=== PATIENT | male | born 1960 | race Caucasian/White ===

== ENCOUNTER 2021-08-07 15:12 | Inpatient (IN) | payer BC ==
[~2021-08-07] VITALS: Ht 187 cm; Wt 125.5 kg
[2021-08-07 15:37] LABS: HEMATOCRIT 52 % (40-54); HEMOGLOBIN 17.5 g/dL (13.3-17.7); MEAN CORPUSCULAR HEMOGLOBIN 33 pg (25-34); MEAN CORPUSCULAR HGB CONC 34 g/dL (32-36); MEAN CORPUSCULAR VOLUME 98 fL (80-99)
[2021-08-07 15:38] LABS: BASOPHILS % (AUTO) 1 % (0-10); EOSINOPHILS % (AUTO) 1 % (0-10); LYMPHOCYTES # (AUTO) 2.7 X 10^3 (1.0-4.0); LYMPHOCYTES % (AUTO) 27 % (12-44); MEAN PLATELET VOLUME 11.3 fL (9.0-12.2); MONOCYTES # (AUTO) 0.9 X 10^3 (0.0-1.0); MONOCYTES % (AUTO) 9 % (0-12); NEUTROPHILS # (AUTO) 6.2 X 10^3 (1.8-7.8); NEUTROPHILS % (AUTO) 63 % (42-75); PLATELET COUNT 177 10^3/uL (130-400)
[2021-08-07 15:39] LABS: BASOPHILS # (AUTO) 0.1 10^3/uL (0.0-0.1); EOSINOPHILS # (AUTO) 0.1 10^3/uL (0.0-0.3)
[2021-08-07] MEDS ORDERED: ASPIRIN 81 MG CHEW (CHILDREN'S ASA) PO STA (15:40)
[2021-08-07] MEDS ORDERED: HEParin 1000 UNIT/ML (10ML VIAL) FOR BOLUS IV STA (15:43)
[2021-08-07] MEDS ORDERED: meTOprolol 5 MG/5 ML (LOPRESSOR) VIAL IV STA (15:43)
--- NOTE | 2021-08-07 15:47 | Diagnostic Imaging Report ---
EXAM: CHEST 1 VIEW AP/PA ONLY INDICATION: Chest pain. COMPARISON: None. FINDINGS: Cardiomegaly. Normal central pulmonary vascularity. No focal pulmonary opacity. No pleural effusion or pneumothorax. No acute osseous findings. IMPRESSION: Cardiomegaly. Chest otherwise unremarkable. Dictated by: Dictated on workstation # [id number]
[2021-08-07 15:49] LABS: PROTHROMBIN TIME PATIENT 13.1 SEC (12.2-14.7)
--- NOTE | 2021-08-07 15:50 | ED Chest Pain ---
General Chief Complaint: Chest Pain Stated Complaint: CP,SOB Nursing Triage Note: Patient has presented to ER with cc of shortness of breath for the last 2 months, he becomes more short of breath with exertion and it has gotten worse over the last 3 weeks. Patient reports sweeping snow this morning and had a 10 minute episode of chest pain that has gone away. He reports that he has remained short of breath today and came to the doctors office for evaluation. He was was brought to ER for evaluation. Source: patient History of Present Illness Date Seen by Provider: Aug 07, 2021 Time Seen by Provider: 15:25 Initial Comments 61-year-old male presenting with complaints of chest pain that has been coming on with exertion and getting worse over the last several weeks. He has been getting short of breath with that as well. He was sweeping snow this morning and had 10-minute episode of chest pain that has gone away but he still short of breath. He gets winded with minimal exertion and has to sit down rest to catch his breath. He went to the doctor's office to be evaluated today and they sent him to the emergency department because of his complaint of chest pain from 10 AM. He states he is not having any chest pain right now is just short of breath and winded. He denies any nausea or vomiting. He states he has no past medical history. He denies any medications that he takes on a regular basis and denies any allergies to medications. Timing/Duration: intermittent (Intermittent chest pain over the last several weeks. He had a 10-minute episode of pain earlier today. He continues to be short of breath especially with exertion) Severity/Quality: moderate Location: substernal Radiation: no radiation Activities at Onset: activity (Sweeping snow) Prior CP/Workup: no prior cardiac workup ASA po PRESSURE CONTROL SUPERVISOR: No NTG SL PRESSURE CONTROL SUPERVISOR: No Associated Symptoms: No abdominal pain, No back pain, No diaphoresis, No dizziness, No edema; fatigue; No fever/chills, No headache, No heartburn, No nausea/vomiting, No rash; shortness of breath; No swelling/lump in chest, No syncope, No weakness Allergies and Home Medications Allergies Coded Allergies: No Known Drug Allergies (Unverified , 08/07/21) Patient Home Medication List Home Medication List Reviewed: Yes Review of Systems Review of Systems Constitutional: No chills, No fever EENTM: No Symptoms Reported Respiratory: See HPI Cardiovascular: See HPI Gastrointestinal: No Symptoms Reported Genitourinary: No Symptoms Reported Musculoskeletal: no symptoms reported Skin: no symptoms reported Psychiatric/Neurological: No Symptoms Reported Endocrine: No Symptoms Reported Past Cbtsdzj-Xejgro-Sdmpff Hx Patient Social History Tobacco Use?: No Use of E-Cig and/or Vaping dev: No Substance use?: No Alcohol Use?: No Pt feels they are or have been: No Physical Exam Vital Signs Vital Signs - First Documented 08/07/21 08/07/21 15:20 15:29 Temp 36.6 Pulse 63 Resp 18 B/P (MAP) 127/99 (108) Pulse Ox 98 O2 Delivery Nasal Cannula O2 Flow Rate 2.00 Capillary Refill : Less Than 3 Seconds Height, Weight, BMI Height: '" Weight: lbs. oz. kg; 35.00 BMI Method: General Appearance: Mild Distress, Obese HEENT: Pharynx Normal Neck: Full Range of Motion, Normal Inspection, Non Tender, Supple; No Carotid Bruit Respiratory: Chest Non Tender, Decreased Breath Sounds; No Stridor Cardiovascular: Normal Peripheral Pulses, Irregularly Irregular, Tachycardia Gastrointestinal: Normal Bowel Sounds, No Pulsatile Mass, Non Tender, Soft Rectal: Deferred Extremity: Normal Capillary Refill, Normal Inspection, No Pedal Edema Neurologic/Psychiatric: Alert, Oriented x3, pack puller II-XII Norm as Tested Skin: Normal Color, Warm/Dry Progress/Results/Core Measures Results/Orders Lab Results Laboratory Tests Test 08/07/21 15:24 Range/Units White Blood Count 10.0 4.3-11.0 10^3/uL Red Blood Count 5.28 4.30-5.52 10^6/uL Hemoglobin 17.5 13.3-17.7 g/dL Hematocrit 52 40-54 % Mean Corpuscular Volume 98 80-99 fL Mean Corpuscular Hemoglobin 33 25-34 pg Mean Corpuscular Hemoglobin Concent 34 32-36 g/dL Red Cell Distribution Width 13.2 10.0-14.5 % Platelet Count 177 130-400 10^3/uL Mean Platelet Volume 11.3 9.0-12.2 fL Immature Granulocyte % (Auto) 0 % Neutrophils (%) (Auto) 63 42-75 % Lymphocytes (%) (Auto) 27 12-44 % Monocytes (%) (Auto) 9 0-12 % Eosinophils (%) (Auto) 1 0-10 % Basophils (%) (Auto) 1 0-10 % Neutrophils # (Auto) 6.2 1.8-7.8 X 10^3 Lymphocytes # (Auto) 2.7 1.0-4.0 X 10^3 Monocytes # (Auto) 0.9 0.0-1.0 X 10^3 Eosinophils # (Auto) 0.1 0.0-0.3 10^3/uL Basophils # (Auto) 0.1 0.0-0.1 10^3/uL Immature Granulocyte # (Auto) 0.0 0.0-0.1 10^3/uL Neutrophils % (Manual) 64 % Lymphocytes % (Manual) 18 % Monocytes % (Manual) 8 % Eosinophils % (Manual) 2 % Basophils % (Manual) 0 % Band Neutrophils 3 % Atypical Lymphocytes 5 % Prothrombin Time 13.1 12.2-14.7 SEC INR Comment 1.0 0.8-1.4 Activated Partial Thromboplast Time 26 24-35 SEC Sodium Level 142 135-145 MMOL/L Potassium Level 4.4 3.6-5.0 MMOL/L Chloride Level 107 98-107 MMOL/L Carbon Dioxide Level 26 21-32 MMOL/L Anion Gap 9 5-14 MMOL/L Blood Urea Nitrogen 14 7-18 MG/DL Creatinine 0.89 0.60-1.30 MG/DL Estimat Glomerular Filtration Rate 87 BUN/Creatinine Ratio 16 Glucose Level 76 70-105 MG/DL Calcium Level 9.7 8.5-10.1 MG/DL Corrected Calcium 9.5 8.5-10.1 MG/DL Magnesium Level 2.0 1.6-2.4 MG/DL Total Bilirubin 0.5 0.1-1.0 MG/DL Aspartate Amino Transf (AST/SGOT) 18 5-34 U/L Alanine Aminotransferase (ALT/SGPT) 33 0-55 U/L Alkaline Phosphatase 98 40-136 U/L Troponin I < 0.30 <0.30 NG/ML Pro-B-Type Natriuretic Peptide 1364.0 H <75.0 PG/ML Total Protein 7.7 6.4-8.2 GM/DL Albumin 4.3 3.2-4.5 GM/DL My Orders Orders - PEDRO PRINGLE MD Cbc With Automated Diff (08/07/21 15:29) Magnesium (08/07/21 15:29) Chest 1 View Ap/Pa Only (08/07/21 15:29) Ekg Tracing (08/07/21 15:29) Comprehensive Metabolic Panel (08/07/21 15:29) Protime With Inr (08/07/21 15:29) Partial Thromboplastin Time (08/07/21 15:29) O2 (08/07/21 15:29) Monitor-Rhythm Ecg Trace Only (08/07/21 15:29) Ed Iv/Invasive Line Start (08/07/21 15:29) Troponin I Fs (08/07/21 15:29) Probnp Fs (08/07/21 15:29) Aspirin Chewable Tablet (Baby Aspirin Ch (08/07/21 15:40) Heparin (Bolus Per Protocol) (Heparin (B (08/07/21 15:43) Metoprolol Tartrate Injection (Lopressor (08/07/21 15:43) Manual Differential (08/07/21 15:24) Ekg Tracing (08/07/21 16:08) Vital Signs/I&O 08/07/21 08/07/21 15:20 15:29 Temp 36.6 Pulse 63 Resp 18 B/P (MAP) 127/99 (108) Pulse Ox 98 O2 Delivery Nasal Cannula Room Air O2 Flow Rate 2.00 Blood Pressure Mean: 108 Progress Progress Note #1: Progress Note Electrocardiogram showed ST elevation in the inferior leads. He also had multiple PVCs present. Prescription was called to activate the Floor Refinisher and spoke with Dr. Parada with cardiology. Give patient aspirin 324 mg p.o. Progress Note #2: Progress Note After discussion with Dr. Parada he recommended 5000 units single bolus of heparin. In addition to this since he was tachycardic look like new onset atrial fibrillation a dose of 5 mg IV metoprolol was given. Patient was on supplemental oxygen by nasal cannula as well. He had findings for cardiomegaly without failure or pleural effusion on his chest x-ray. Progress Note #3: Progress Note Initial troponin came back less than 0.3. His initial blood work did not show any acute significant abnormality. His proBNP was slightly elevated. 1605 Dr. Parada called back and requested a repeat EKG and that the patient get 5 mg of metoprolol. I advised him that the patient already had metoprolol. He was hoping that the repeat EKG would have fewer PVCs so he could see better what was going on with the patient. Initial ECG Impression Date: Aug 07, 2021 Initial ECG Impression Time: 15:15 Initial ECG Rate: 120 Initial ECG Rhythm: A Fib/Flutter Initial ECG Comparisson: No Previous ECG Available Comment Atrial flutter with a rate of 120 bpm. Paired PVCs. Nonspecific intraventricular conduction delay. ST elevation in the anterolateral and inferior leads. QT interval 361 ms with a QTc interval of 511 ms. No prior tracing available for comparison. EKG : EKG Time: 16:08 Rate: 121 Rhythm: A Fib/Flutter ECG Comparisson: Changed Comment Atrial fibrillation with a heart rate of 112 bpm. Inferior infarct with ST elevation and leads II, 3, aVF, V1 through V3. Prolonged QT interval of 381 ms and QTc interval 541 ms. Compared to prior tracing from 1514 he has fewer PVCs. Diagnostic Imaging Diagonstic Imaging: Xray Plain Films/CT/US/NM/MRI: chest Comments [facility]. [place], [place] NAME: HUGO CERVANTES [facility] REC#: [id number] PT STATUS: REG ER : 1960 PHYSICIAN: PEDRO PRINGLE MD ADMIT DATE: 08/07/21/ER FS Draft Date of Exam:08/07/21 CHEST 1 VIEW AP/PA ONLY EXAM: CHEST 1 VIEW AP/PA ONLY INDICATION: Chest pain. COMPARISON: None. FINDINGS: Cardiomegaly. Normal central pulmonary vascularity. No focal pulmonary opacity. No pleural effusion or pneumothorax. No acute osseous findings. IMPRESSION: Cardiomegaly. Chest otherwise unremarkable. Dictated on workstation # [id number] Dict: 08/07/21 1542 Trans: 08/07/21 1547 CV [id number] Interpreted by: MARK NÚÑEZ MD Electronically signed by: Reviewed: Reviewed by Me Departure Communication (Admissions) Time/Spoke to Admitting Phy: 15:[address] Parada for cardiology. Advised of the ST elevation and new onset atrial fibrillation with chest pain. Patient was given aspirin and he recommended heparin 5000 unit bolus. Patient will go to the Floor Refinisher. Impression Primary Impression: STEMI (ST elevation myocardial infarction) Qualified Codes: I21.3 - ST elevation (STEMI) myocardial infarction of unspecified site Additional Impressions: Chest pain Qualified Codes: I20.0 - Unstable angina New onset atrial fibrillation Disposition: 30 STILL A PATIENT Condition: Critical Admissions Decision to Admit Reason: Admit from ER (General) Decision to Admit/Date: Aug 07, 2021 Time/Decision to Admit Time: 15:41 Departure-Patient Inst. Referrals: NO,LOCAL PHYSICIAN (PCP/Family) Primary Care Physician PEDRO PRINGLE MD Aug 07, 2021 15:50
[2021-08-07] MEDS ORDERED: fentaNYL INJ 100 MCG/2 ML AMP ONE (15:54)
[2021-08-07] MEDS ORDERED: NS IV 1000 ML 1,000 ML ONE (15:55)
[2021-08-07] MEDS ORDERED: NITRO DRIP 25000 MCG/D5W 250 ML IV ONE (15:55)
[2021-08-07] MEDS ORDERED: HEParin (CATH LAB) 2,000 ML IV ONE (15:55)
[2021-08-07] MEDS ORDERED: HEParin 1000 UNIT/ML (10ML VIAL) FOR BOLUS ONE (15:55)
[2021-08-07] MEDS ORDERED: MIDAZOLAM 5 MG/5 ML (VERSED) VIAL ONE (15:55)
[2021-08-07 15:56] LABS: ATYPICAL LYMPHOCYTES 5 %; BAND NEUTROPHILS 3 %; BASOPHILS % (MANUAL) 0 %; EOSINOPHILS % (MANUAL) 2 %; LYMPHOCYTES % (MANUAL) 18 %; MONOCYTES % (MANUAL) 8 %; NEUTROPHILS % (MANUAL) 64 %
[2021-08-07] MEDS ORDERED: LIDOCAINE 1% INJ 20 ML VIAL ONE (15:58)
[2021-08-07 16:00] LABS: ALBUMIN 4.3 GM/DL (3.2-4.5); BILIRUBIN,TOTAL 0.5 MG/DL (0.1-1.0); CALCIUM 9.7 MG/DL (8.5-10.1); CREATININE SERUM 0.89 MG/DL (0.60-1.30); POTASSIUM 4.4 MMOL/L (3.6-5.0); TOTAL PROTEIN 7.7 GM/DL (6.4-8.2)
[2021-08-07] MEDS ORDERED: PATIENT MAY USE OWN MEDS, ALL PO SCH (17:45)
--- NOTE | 2021-08-07 17:48 | Cardiology History & Physical ---
HPI-Cardiology Cardiology Consultation Date of Consultation 08/07/21 Date of Admission Time Seen by Provider: 17:07 Indication: Acute myocardial infarction HPI 61 years old gentleman with no significant past medical history has been having increasing shortness of breath on exertion and palpitation, started to have chest pain today described as dull in nature in the retrosternal area, came into the emergency room and noted to be tachycardic and having ST elevation in the inferior leads. Currently feeling somewhat better. Transferred for emergency cardiac catheterization. PMH-Cardiology Other PMHx No known past medical history Social History Patient Social History Marrital Status: Employed/Student: employed Smoking: Current every day smoker Alcohol Use?: No Family Hx Other Family history of heart disease ROS-Cardiology Review of Systems General: No Chills, No Night Sweats, No Fatigue, No Malaise, No Appetite HEENT: No Head Aches, No Visual Changes, No Eye Pain, No Ear Pain, No Dysphasia, No Sinus Congestion, No Post Nasal Drip, No Sore Throat Pulmonary: Dyspnea; No Cough, No Pleuritic Chest Pain Cardiovascular: Chest Pain, Palpitations; No: Orthopnea, Paroxysmal Noc. Dyspnea, Edema, Lt Headedness Gastrointestinal: No: Nausea, Vomiting, Abdominal Pain, Diarrhea, Constipation, Melena, Hematochezia Genitourinary: No Dysuria, No Frequency, No Incontinence, No Hematuria, No Retention Musculoskeletal: No: neck pain, shoulder pain, arm pain, back pain, hand pain, leg pain, foot pain Neurological: No: Weakness, Numbness, Incoordination, Change in speech, Confusion, Seizures Home Medications & Allergies Allergies: Coded Allergies: No Known Drug Allergies (Unverified , 08/07/21) Home Medication List Reviewed: Yes Exam-Cardiology Vital Signs Vital Signs Date Time Temp Pulse Resp B/P (MAP) Pulse Ox O2 Delivery O2 Flow Rate FiO2 08/07/21 15:29 36.6 63 18 127/99 (108) Room Air 08/07/21 15:20 98 2.00 Exam General Appearance: Alert, Oriented X3, Cooperative, No Acute Distress HEENT: Atraumatic, PERRLA Respiratory: Clear to Auscultation, Normal Air Movement Cardiovascular: Normal S1, Normal S2, No Murmurs, Other (Tachycardia) Abdominal: Normal Bowel Sounds, Soft, No Tenderness, No Hepatosplenomegaly, No Masses Extremities: No Clubbing, No Cyanosis, No Edema, Normal Pulses, No Tenderness/Swelling Skin: No Rashes, No Breakdown, No Significant Lesion Neuro: Normal Gait, Normal Speech, Strength at 5/5 X4 Ext, Normal Tone, Sensation Intact Psych/Mental Status: Mental Status NL, Mood NL Results Labs Labs Laboratory Tests 08/07/21 15:24: White Blood Count 10.0, Red Blood Count 5.28, Hemoglobin 17.5, Hematocrit 52, Mean Corpuscular Volume 98, Mean Corpuscular Hemoglobin 33, Mean Corpuscular Hemoglobin Concent 34, Red Cell Distribution Width 13.2, Platelet Count 177, Mean Platelet Volume 11.3, Immature Granulocyte % (Auto) 0, Neutrophils (%) (Auto) 63, Lymphocytes (%) (Auto) 27, Monocytes (%) (Auto) 9, Eosinophils (%) (Auto) 1, Basophils (%) (Auto) 1, Neutrophils # (Auto) 6.2, Lymphocytes # (Auto) 2.7, Monocytes # (Auto) 0.9, Eosinophils # (Auto) 0.1, Basophils # (Auto) 0.1, Immature Granulocyte # (Auto) 0.0, Neutrophils % (Manual) 64, Lymphocytes % (Manual) 18, Monocytes % (Manual) 8, Eosinophils % (Manual) 2, Basophils % (Manual) 0, Band Neutrophils 3, Atypical Lymphocytes 5, Prothrombin Time 13.1, I NR Comment 1.0, Activated Partial Thromboplast Time 26, Sodium Level 142, Potassium Level 4.4, Chloride Level 107, Carbon Dioxide Level 26, Anion Gap 9, Blood Urea Nitrogen 14, Creatinine 0.89, Estimat Glomerular Filtration Rate 87, BUN/Creatinine Ratio 16, Glucose Level 76, Calcium Level 9.7, Corrected Calcium 9.5, Magnesium Level 2.0, Total Bilirubin 0.5, Aspartate Amino Transf (AST/SGOT) 18, Alanine Aminotransferase (ALT/SGPT) 33, Alkaline Phosphatase 98, Troponin I < 0.30, Pro-B-Type Natriuretic Peptide 1364.0H, Total Protein 7.7, Albumin 4.3 A/P-Cardiology Admission Diagnosis Acute ST elevation myocardial infarction Coronary artery disease Tachycardia Dyspnea Admission Status: Inpatient Order (span 2 midnights) Reason for Inpatient Admission: Acute ST elevation myocardial infarction Assessment/Plan Acute ST elevation myocardial infarction, brought for emergency cardiac catheterization, carried out with stenting to the circumflex artery with excellent results Coronary artery disease, cardiac catheterization was carried out on August 07, 2021 showing ectasia in the LAD, subtotal occlusion in the mid circumflex artery successful balloon angioplasty and stenting using zuri point stent 2.75 x 23 mm expanded to 2.9 proximally and 2.85 distally with excellent results, moderate stenosis in the mid right coronary artery with mild ectasia Mildly elevated left ventricular end-diastolic pressure. Planning to evaluate 2D echo Tachycardia, narrow complex, could have underlying atrial flutter. I will continue monitoring Frequent PVCs noted on EKG, started on low-dose beta-blockers Hyperlipidemia, started on Lipitor 80 mg daily Obesity, BMI 35 Heavy tobaccoism, educated on smoking cessation Clinical Quality Measures AMI/AHF: ASA po Prior to arrival: JOHNATHON Tijerina MD Aug 07, 2021 17:48
--- NOTE | 2021-08-07 17:49 | Conscious Sedation/ASA ---
Conscious Sedation Pre-Proced Time 17:07 ASA Score 3 For ASA 3 and 4: Consider anesthesia and medical clearance. Also, for patients with a history of failed moderate sedation consider anesthesia. Airway Lungs Heart ASA score ASA 1: a normal healthy patient ASA 2: a patient with a mild systemic disease (mid diabetes, controlled hypertension, obesity x ASA 3: a patient with a severe systemic disease that limits activity (angina, COPD, prior Myocardial infarction) ASA 4: a patient with an incapacitating disease that is a constant threat to life (CHF, renal failure) ASA 5: a moribund patient not expected to survive 24 hrs. (ruptured aneurysm) ASA 6: a declared brain- patient whose organs are being harvested. For emergent operations, add the letter E after the classification Mallampati Classification Grade 3 Sedation Plan Analgesia, Amnesia, Plan communicated to team members, Discussed options with patient/fam, Discussed risks with patient/fam The patient is an appropriate candidate to undergo the planned procedure, sedation, and anesthesia. The patient immediately re-assessed prior to indication. JOHNATHON BEAVER MD Aug 07, 2021 17:49
--- NOTE | 2021-08-07 17:53 | Cardiac Cath Report ---
Cardiac Cath Report Physician (s)/Chassis Engineer (s) Physician JOHNATHON BEAVER MD Pre-Procedure Diagnosis Pre-Procedure Diagnosis: Coronary artery disease Post-Procedure Note Procedure Start Date: Aug 07, 2021 Name of Procedure: Left heart catheterization Emergency stenting to the circumflex artery Findings/Procedure Note PROCEDURE NOTE: 61 years old gentleman with no significant past medical history admitted with acute chest pain and shortness of breath and palpitation, noted to have ST elevation in the inferior leads, transferred for emergency cardiac catheterization. After explaining the procedure to the patient, all pros and cons were explained, all questions were answered. The patient signed the cons ent and then he was placed on the cardiac catheterization laboratory. Groin was prepped SL fashion local anesthesia was used. Sheath placed in the artery. Karen right and left catheter were used to access the coronary system. Patient was noted to have subtotal occlusion of the circumflex artery, EBU 3.5 guide was advanced to the left ventricular system, that catheter prolapsed into the left ventricle, pressure was measured, pullback LV to aorta was done. Patient received total of 8000 units of heparin, BMW wire was advanced and parked in the distal circumflex artery, predilatation with 2.5 x 20 mm balloon, door to balloon time was 19 minutes then deployment of zuri point stent 2.75 x 23 mm expanded proximally to 2.9 mm and distally 2.85 mm with excellent results. At the end of the procedure the sheath was removed. Closure device was deployed FINDINGS: Hemodynamics Please see separate sheet for hemodynamic ANATOMY: Left Main is free of obstructive disease Left Anterior Descending has diffuse ectasia with mild disease nonobstructive disease Left Circumflex has subtotal occlusion at the midportion successful emergency angioplasty and stenting using zuri point stent 2.75 x 23 mm expanded to 2.9 mm proximally and 2.85 mm distally Right Coronary Artery has diffuse ectasia, moderate stenosis at the mid to distal portion nonobstructive disease LV Gram was not done, pressure was measured CONCLUSION: 1. Acute ST elevation myocardial infarction in the inferior lead with subtotal occlusion of the mid circumflex artery successful emergency angioplasty and stenting using zuri point stent 2.75 x 23 mm with excellent results 2. Diffuse ectasia in the LAD and right coronary artery with moderate stenosis in the mid to distal right coronary artery nonobstructive disease DISCUSSION AND RECOMMENDATION: Patient was started on aspirin and Brilinta, Lipitor and beta-blockers. We will monitor tolerance and response Anesthesia Type: Conscious Sedation Estimated blood loss (mL): 25 ml Contrast Amount: 125 ml Total Radiation Dose: 1523 mGy Post-Procedure Diagnosis Post-operative diagnosis: Acute ST elevation myocardial infarction Coronary artery disease Hypertension Hyperlipdemia JOHNATHON BEAVER MD Aug 07, 2021 17:53
[2021-08-07] MEDS ORDERED: TICAGRELOR 90 MG TABLET (BRILINTA) PO ONE (17:59)
[2021-08-07] MEDS: NS IV 1000 ML 1,000 ML IV SCH ×2 (18:10→19:00)
--- NOTE | 2021-08-07 18:22 | Tele-ICU Progress Note ---
Progress Note Video assessment done , Hemodynamically stable Available charting reviewed NO TELE-ICU CONSULT REQUESTED CONTINUE TO MONITOR PER USUAL TELE-ICU PROTOCOL No need for Tele-ICU interventions Plans as delineated by bedside physicians / consultants Focused Exam Height, Weight, BMI Height: '" Weight: lbs. oz. kg; 35.00 BMI Method: LENIN DURBIN MD Aug 07, 2021 18:22
[2021-08-07] MEDS: TICAGRELOR 90 MG TABLET (BRILINTA) PO SCH (21:41)
[2021-08-08 04:29] LABS: HEMATOCRIT 48 % (40-54); HEMOGLOBIN 16.3 g/dL (13.3-17.7); MEAN CORPUSCULAR HEMOGLOBIN 33 pg (25-34); MEAN CORPUSCULAR HGB CONC 34 g/dL (32-36); MEAN CORPUSCULAR VOLUME 97 fL (80-99); MEAN PLATELET VOLUME 11.2 fL (9.0-12.2); PLATELET COUNT 161 10^3/uL (130-400); WHITE BLOOD COUNT 9.5 10^3/uL (4.3-11.0)
[2021-08-08 04:45] LABS: POTASSIUM 4.2 MMOL/L (3.6-5.0)
[2021-08-08 04:46] LABS: CALCIUM 8.8 MG/DL (8.5-10.1)
[2021-08-08 04:51] LABS: CREATININE SERUM 0.72 MG/DL (0.60-1.30)
[2021-08-08] MEDS: PANTOPRAZOLE 40 MG (PROTONIX) TAB PO SCH (08:29)
[2021-08-08] MEDS: ASPIRIN E.C. 81 MG (ECOTRIN) TAB PO SCH (08:29)
[2021-08-08] MEDS: TICAGRELOR 90 MG TABLET (BRILINTA) PO SCH ×2 (08:29→20:03)
[2021-08-08] MEDS ORDERED: MIDAZOLAM 5 MG/5 ML (VERSED) VIAL ONE (09:34)
[2021-08-08] MEDS ORDERED: NS IV 500 ML 500 ML ONE (09:34)
[2021-08-08] MEDS ORDERED: proPOfol 200 MG/20 ML (DIPRIVAN) VIAL IV ONE (09:34)
[2021-08-08] MEDS ORDERED: LIDOCAINE 2% VISCOUS 15 ML UDC ONE (09:34)
--- NOTE | 2021-08-08 09:49 | Conscious Sedation/ASA ---
Conscious Sedation Pre-Proced Time 09:49 ASA Score 3 For ASA 3 and 4: Consider anesthesia and medical clearance. Also, for patients with a history of failed moderate sedation consider anesthesia. Airway Lungs Heart ASA score ASA 1: a normal healthy patient ASA 2: a patient with a mild systemic disease (mid diabetes, controlled hypertension, obesity x ASA 3: a patient with a severe systemic disease that limits activity (angina, COPD, prior Myocardial infarction) ASA 4: a patient with an incapacitating disease that is a constant threat to life (CHF, renal failure) ASA 5: a moribund patient not expected to survive 24 hrs. (ruptured aneurysm) ASA 6: a declared brain- patient whose organs are being harvested. For emergent operations, add the letter E after the classification Mallampati Classification Grade 3 Sedation Plan Analgesia, Amnesia, Plan communicated to team members, Discussed options with patient/fam, Discussed risks with patient/fam The patient is an appropriate candidate to undergo the planned procedure, sedation, and anesthesia. The patient immediately re-assessed prior to indication. JOHNATHON BEAVER MD Aug 08, 2021 09:49
--- NOTE | 2021-08-08 09:52 | Cardiology Progress Note ---
Subjective Date Seen by Provider: Aug 08, 2021 Time Seen by Provider: 09:50 Subjective/Events-last exam Patient was seen at bedside laying down comfortably, denied any chest pain, still tachycardic. Review of Systems General: No Chills, No Night Sweats, No Fatigue, No Malaise, No Appetite, No Other HEENT: No Head Aches, No Visual Changes, No Eye Pain, No Ear Pain, No Dysphasia, No Sinus Congestion, No Post Nasal Drip, No Sore Throat, No Other Pulmonary: Dyspnea; No Cough, No Pleuritic Chest Pain, No Other Cardiovascular: No: Chest Pain, Palpitations, Orthopnea, Paroxysmal Noc. Dyspnea, Edema, Lt Headedness, Other Objective-Cardiology Exam Last Set of Vital Signs Vital Signs 08/07/21 08/08/21 08/08/21 15:20 08:27 09:00 Temp 36.8 Pulse 94 Resp 10 B/P (MAP) 132/98 Pulse Ox 95 O2 Delivery Room Air O2 Flow Rate 2.00 I&O Intake and Output 08/08/21 00:00 Intake Total 350 ml Output Total 700 ml Balance -350 ml Intake Oral 350 ml Output Urine Total 700 ml Daily Weight Change No General: Alert, Oriented X3, Cooperative, No Acute Distress HEENT: Atraumatic, PERRLA Lungs: Clear to Auscultation, Normal Air Movement Heart: Normal S1, Normal S2, No Murmurs, Other (Tachycardia) Abdomen: Normal Bowel Sounds, Soft, No Tenderness, No Hepatosplenomegaly, No Masses Extremities: No Clubbing, No Cyanosis, No Edema, Normal Pulses, No Tenderness/Swelling Skin: No Rashes, No Breakdown, No Significant Lesion Neuro: Normal Gait, Normal Speech, Strength at 5/5 X4 Ext, Normal Tone, Sensa tion Intact Psych/Mental Status: Mental Status NL, Mood NL Results Lab Laboratory Tests 08/07/21 15:24 08/08/21 04:05 A/P-Cardiology Admission Diagnosis Acute ST elevation myocardial infarction Coronary artery disease Tachycardia Dyspnea Assessment/Plan Acute ST elevation myocardial infarction, brought for emergency cardiac catheterization, carried out with stenting to the circumflex artery with excellent results Coronary artery disease, cardiac catheterization was carried out on August 07, 2021 showing ectasia in the LAD, subtotal occlusion in the mid circumflex artery successful balloon angioplasty and stenting using zuri point stent 2.75 x 23 mm expanded to 2.9 proximally and 2.85 distally with excellent results, moderate stenosis in the mid right coronary artery with mild ectasia Congestive heart failure, acute left ventricular systolic dysfunction, ischemic and nonischemic cardiomyopathy probably secondary to coronary artery disease and atrial fibrillation with rapid ventricular response, started on beta-blockers, adding ARB, arranging for LifeVest. Atrial fibrillation with rapid ventricular response, started on Lovenox, I will add Eliquis 5 mg twice daily, planning for ANDRE with electrical cardioversion [id number] score of 3, yearly risk of stroke without oral anticoagulation 3%, starting on Eliquis. Frequent PVCs noted on EKG, started on low-dose beta-blockers Hyperlipidemia, started on Lipitor 80 mg daily Obesity, BMI 35 Heavy tobaccoism, educated on smoking cessation JOHNATHON BEAVER MD Aug 08, 2021 09:51
[2021-08-08] MEDS: ENOXAPARIN 300 MG/3 ML (LOVENOX) MULTI-DOSE VIAL SQ SCH ×2 (10:00→10:22)
[2021-08-08] MEDS ORDERED: AMIODARONE FOR BOLUS 150 MG in NS (IVPB) 100 ML IV NR (11:00)
[2021-08-08 11:35] VITALS: BP 112/81
--- NOTE | 2021-08-08 11:45 | Cardioversion ---
Cardioversion PROCEDURE PHYSICIAN: Johnathon Parada DATE OF PROCEDURE: 08/08/21 DIRECT EXTERNAL ELECTRICAL CARDIOVERSION: Indications: Atrial Fibrillation with rapid ventricular rate Preoperative diagnoses: Atrial Fibrillation with rapid ventricular rate Postoperative diagnosis: Sinus rhythm, Successful Electrical Cardioversion Anesthesia: By Anesthesia services Complications: None Specimen: None Contrast: 0 Flouroscopy: none Procedure Details: The patient was brought the laborer tin can after informed consent was taken, all the risks and complications were explained including the risk of stroke. Electrical cardioversion was carried out with anesthesia support with propofol. 200 joules of synchronized shock was delivered through external patches which promptly restored sinus rhythm. The patient tolerated the procedure well. Conclusions: Successful electrical cardioversion with no complication Final Diagnosis: Paroxysmal atrial fibrillation Palpitation Congestive heart failure Coronary artery disease JOHNATHON PARADA MD Aug 08, 2021 11:45
--- NOTE | 2021-08-08 11:59 | Anesthesia-General Post-Op ---
MAC Patient Condition Mental Status/LOC: Same as Preop Cardiovascular: Satisfactory Nausea/Vomiting: Absent Respiratory: Satisfactory Pain: Controlled Complications: Absent Post Op Complications Complications None Follow Up Care/Instructions Patient Instructions None needed. Anesthesiology Discharge Order Discharge Order Patient is doing well, no complaints, stable vital signs, no apparent adverse anesthesia problems. No complications reported per nursing. LISA CABELLO CRNA Aug 08, 2021 11:59
[2021-08-08] MEDS: APIXABAN 5 MG (ELIQUIS) TABLET PO SCH (20:03)
[2021-08-09 04:27] LABS: BASOPHILS % (AUTO) 0 % (0-10); EOSINOPHILS # (AUTO) 0.1 10^3/uL (0.0-0.3); EOSINOPHILS % (AUTO) 1 % (0-10); HEMATOCRIT 48 % (40-54); HEMOGLOBIN 16.1 g/dL (13.3-17.7); LYMPHOCYTES # (AUTO) 2.1 10^3/uL (1.0-4.0); LYMPHOCYTES % (AUTO) 23 % (12-44); MEAN CORPUSCULAR HEMOGLOBIN 33 pg (25-34); MEAN CORPUSCULAR HGB CONC 33 g/dL (32-36); MEAN CORPUSCULAR VOLUME 98 fL (80-99); MEAN PLATELET VOLUME 11.6 fL (9.0-12.2); MONOCYTES # (AUTO) 0.8 10^3/uL (0.0-1.0); MONOCYTES % (AUTO) 9 % (0-12); NEUTROPHILS # (AUTO) 6.1 10^3/uL (1.8-7.8); NEUTROPHILS % (AUTO) 67 % (42-75); PLATELET COUNT 148 10^3/uL (130-400); WHITE BLOOD COUNT 9.1 10^3/uL (4.3-11.0)
[2021-08-09 04:46] LABS: ALBUMIN 3.7 GM/DL (3.2-4.5); POTASSIUM 4.2 MMOL/L (3.6-5.0)
[2021-08-09 04:47] LABS: CALCIUM 9.1 MG/DL (8.5-10.1)
[2021-08-09 04:48] LABS: TOTAL PROTEIN 6.9 GM/DL (6.4-8.2)
[2021-08-09 04:50] LABS: BILIRUBIN,TOTAL 1.2 MG/DL (0.1-1.0)
[2021-08-09 04:52] LABS: CREATININE SERUM 0.81 MG/DL (0.60-1.30); PHOSPHORUS 3.4 MG/DL (2.3-4.7)
[2021-08-09 04:54] LABS: MAGNESIUM 1.8 MG/DL (1.6-2.4)
--- NOTE | 2021-08-09 08:12 | Tele-ICU Progress Note ---
Progress Note video rounds completed 61 y/o admitted with STEMI Had PCI developed a fib and cardioverted PE: now in sinus rythym PLANS: as per cardiology dual antiplatlet RX Focused Exam Height, Weight, BMI Height: '" Weight: lbs. oz. kg; 35.74 BMI Method: Laboratory Tests 08/09/21 04:08 HUGO ELDER MD Aug 09, 2021 08:12
[2021-08-09] MEDS: TICAGRELOR 90 MG TABLET (BRILINTA) PO SCH (08:22)
[2021-08-09] MEDS: APIXABAN 5 MG (ELIQUIS) TABLET PO SCH (08:22)
[2021-08-09] MEDS: ASPIRIN E.C. 81 MG (ECOTRIN) TAB PO SCH (08:22)
[2021-08-09] MEDS: PANTOPRAZOLE 40 MG (PROTONIX) TAB PO SCH (08:22)
[2021-08-09] MEDS: NS IV 1000 ML 1,000 ML IV SCH (08:23)
[2021-08-09] MEDS ORDERED: LOSARTAN 25 MG (COZAAR) TAB PO SCH (09:00)
[2021-08-09] MEDS ORDERED: FUROSEMIDE 40 MG/4 ML INJ (LASIX) IVP ONE (10:30)
[2021-08-09] MEDS ORDERED: CLOPIDOGREL 75 MG (PLAVIX) TABLET PO SCH (10:30)
[2021-08-09] MEDS ORDERED: ASPI-1238 PO (11:40)
[2021-08-09] MEDS ORDERED: CLOP75TA28 PO (11:40)
[2021-08-09] MEDS ORDERED: MTP25TSR PO (11:40)
[2021-08-09] MEDS ORDERED: ATOR80TA76 PO (11:40)
[2021-08-09] MEDS ORDERED: APIX5TAB PO (11:40)
[2021-08-09] MEDS ORDERED: LOSA25TA41 PO (11:40)
[2021-08-09] MEDS ORDERED: PANT40TA52 PO (11:40)
[2021-08-09] MEDS ORDERED: HYDR25TA4 PO (11:40)
--- NOTE | 2021-08-09 11:40 | Discharge Inst-Post CATH ---
Discharge Inst-CATH/EP Problems Reviewed?: Yes Post Cardiac Cath/EP D/C Inst Follow Up/Plan Appointment with Dr. Parada's office in 1 to 2 weeks <b>CARDIAC CATH/EP PROCEDURE DISCHARGE INSTRUCTIONS</b> ACTIVITY * Go Home directly and rest. * Limit activity of the leg (or wrist if it was used) for 7 days including aer obics, swimming, jogging, bicycling, etc. * Restrict stair-climbing for 7 days if possible, if not, climb up with your non-cath leg, then bring together on the same step. * Avoid lifting, pushing, pulling or excessive movement of the affected extremi ty for 7 days. * Customary sexual activity may be resumed after 2 days-use caution not to use a position that strains or causes pain to the affected extremity. * No driving for 24 hours. * NO SMOKING. * Avoid straining for bowel movements for 7 days. * Gentle walking on level ground is allowed. * Returning to work will depend on the type of procedure and the results. Your doctor will discuss this with you. CALL YOUR DOCTOR FOR ANY OF THE FOLLOWING: *If bleeding from the puncture site occurs- Apply gentle pressure to site with clean cloth and call your doctor or EMS. * If a knot or lump forms under the skin, increases in size, or causes pain. * If bruising appears to be worsening or moving further down your leg instead of disappearing. * Temperature above 101 F. CARE OF YOUR GROIN INCISION; * Bruising or purple discoloration of the skin near the puncture site is common. * You may shower only, no bathtub bathing for 5 days. Be careful to avoid slipping as your leg may feel stiff. * If a closure device was used on your femoral artery, please see the attached guide regarding care of the device and your leg. * Leave dressing on FOR 24 hours. CARE OF YOUR WRIST INCISION; * Bruising or purple discoloration of the skin near the puncture site is common. * You may shower. * DO NOT submerge wrist. * Leave dressing on FOR 24 hours. JOHNATHON PARADA MD Aug 09, 2021 11:40
--- NOTE | 2021-08-09 11:44 | Cardiology Discharge Summary ---
Discharge Summary Hospital Course Problems Reviewed?: Yes Hospital Course Date of Admission: Aug 07, 2021 at 17:42 Admission Diagnosis : Family Physician/Provider: No,Local Physician Date of Discharge: 08/09/21 Discharge Diagnosis: [Acute ST elevation myocardial infarction in the inferior wall Coronary artery disease Congestive heart failure, acute left ventricular systolic dysfunction, combination of ischemic and nonischemic cardiomyopathy, ejection fraction 25% Paroxysmal atrial fibrillation Hyperlipidemia Tobaccoism] Hospital Course: [ Acute ST elevation myocardial infarction, brought for emergency cardiac cath eterization, carried out with stenting to the circumflex artery with excellent results Coronary artery disease, cardiac catheterization was carried out on August 07, 2021 showing ectasia in the LAD, subtotal occlusion in the mid circumflex artery successful balloon angioplasty and stenting using zuri point stent 2.75 x 23 mm expanded to 2.9 proximally and 2.85 distally with excellent results, moderate stenosis in the mid right coronary artery with mild ectasia Congestive heart failure, acute left ventricular systolic dysfunction, ischemic and nonischemic cardiomyopathy probably secondary to coronary artery disease and atrial fibrillation with rapid ventricular response, started on beta-blockers and ARB, arranging for LifeVest. Shortness of breath, orthopnea, appeared to have mild pulmonary edema, I will give him 80 mg of Lasix IV x1 then I am adding hydrochlorothiazide and evaluate tolerance and response Atrial fibrillation with rapid ventricular response, started on Lovenox, I will add Eliquis 5 mg twice daily, planning for ANDRE with electrical cardioversion [id number] score of 3, yearly risk of stroke without oral anticoagulation 3%, starting on Eliquis. Frequent PVCs noted on EKG, started on low-dose beta-blockers Hyperlipidemia, started on Lipitor 80 mg daily Obesity, BMI 35 Heavy tobaccoism, educated on smoking cessation] Labs and Pending Lab Test: Laboratory Tests 08/09/21 04:08: White Blood Count 9.1, Red Blood Count 4.91, Hemoglobin 16.1, Hematocrit 48, Mean Corpuscular Volume 98, Mean Corpuscular Hemoglobin 33, Mean Corpuscular Hemoglobin Concent 33, Red Cell Distribution Width 13.2, Platelet Count 148, Mean Platelet Volume 11.6, Immature Granulocyte % (Auto) 0, Neutrophils (%) (Auto) 67, Lymphocytes (%) (Auto) 23, Monocytes (%) (Auto) 9, Eosinophils (%) (Auto) 1, Basophils (%) (Auto) 0, Neutrophils # (Auto) 6.1, Lymphocytes # (Auto) 2.1, Monocytes # (Auto) 0.8, Eosinophils # (Auto) 0.1, Basophils # (Auto) 0.0, Immature Granulocyte # (Auto) 0.0, Sodium Level 138, Potassium Level 4.2, Chloride Level 105, Carbon Dioxide Level 22, Anion Gap 11, Blood Urea Nitrogen 13, Creatinine 0.81, Estimat Glomerular Filtration Rate 97, BUN/Creatinine Ratio 16, Glucose Level 102, Calcium Level 9.1, Corrected Calcium 9.3, Phosphorus Level 3.4, Magnesium Level 1.8, Total Bilirubin 1.2H, Aspartate Amino Transf (AST/SGOT) 13, Alanine Aminotransferase (ALT/SGPT) 24, Alkaline Phosphatase 79, Total Protein 6.9, Albumin 3.7 Home Meds Active Pantoprazole Sodium 40 Mg Tablet.dr 40 Mg PO DAILY Hydrochlorothiazide 25 Mg Tablet 25 Mg PO DAILY Aspirin EC (Aspirin) 81 Mg Tablet.dr 81 Mg PO DAILY Losartan Potassium 25 Mg Tablet 25 Mg PO DAILY Metoprolol Succinate 25 Mg Tab.er.24h 25 Mg PO DAILY Atorvastatin Calcium 80 Mg Tablet 80 Mg PO HS Clopidogrel (Clopidogrel Bisulfate) 75 Mg Tablet 75 Mg PO DAILY Eliquis (Apixaban) 5 Mg Tablet 5 Mg PO BID Assessment/Pt DC Instructions Appointment with Dr Parada in one week Life vest Educated on diet, meds Activity as Tolerated: Yes Discharge Physical Examination Allergies: Coded Allergies: No Known Drug Allergies (Unverified , 08/07/21) General Appearance: No Apparent Distress, WD/WN HEENT: PERRL/EOMI, TMs Normal, Normal ENT Inspection, Pharynx Normal Respiratory: Chest Non Tender, Normal Breath Sounds, No Accessory Muscle Use, No Respiratory Distress, Crackles Cardiovascular: Regular Rate, Rhythm, No Edema, No Gallop, No JVD, No Murmur, Normal Peripheral Pulses Gastrointestinal: Normal Bowel Sounds, No Organomegaly, No Pulsatile Mass, Non Tender, Soft Extremity: Normal Capillary Refill, Normal Inspection, Normal Range of Motion, Non Tender, No Calf Tenderness, No Pedal Edema Skin: Normal Color, Warm/Dry Neurologic/Psychiatric: Alert, Oriented x3, No Motor/Sensory Deficits Clinical Quality Measures Admission Status Admission Status: Inpatient Order (span 2 midnights) Reason for Inpatient Admission: Acute myocardial infarction AMI/AHF: Ejection Fraction: <40 (YFN/ARB Indicated) D/C Medications Addressed: Angiotension receptor feliciano, Beta feliciano ASA po Prior to arrival: JOHNATHON Tijerina MD Aug 09, 2021 11:44
--- NOTE | 2021-08-11 22:46 | Physician Query Clarification ---
PQ-CHF Specificity Admission Date: Aug 07, 2021 at 17:42 Discharge Date: Aug 09, 2021 at 15:00 JOHNATHON Geiger MD The medical record reflects the following clinical scenario: History/Risk Factors: 61 y/o male patientpresented with chaest pain found to have STEMI in [facility] under went cardiac catheterization and emergent angioplasty with drug eluting stent done, cogestive heart failure was documented in medical record. Clinical Findings: BNP-1364.0 H, EF-26 %, Treatment: IV Lasix. Question: Can you further specify the acuity &/or type of CHF per the clinical indicators above? Please document a response in the Progress Notes or Discharge Summary. 1. Acuity: Acute, Chronic or Acute on Chronic 2. Type: Systolic, Diastolic or Systolic & Diastolic 3. Unspecified: CHF cannot be further specified regarding type or acuity 4. Other, with explanation of clinical findings 5. Clinically undetermined, no explanation for clinical findings PHYSICIAN RESPONSE Acuity: Acute Type: Systolic Please remember a lack of response to the above will prompt a phone page by CDI/Coding staff. In responding to this query, please exercise your independent professional ju dgment. The purpose of this communication is to more accurately reflect the complexity of your patients condition. The fact that a question is asked does not imply that any particular answer is desired or expected. Thank you for your timely response to this clarification. Requestors name: [ ] Phone # [ ] THIS PHYSICIAN QUERY FORM IS A PERMANENT PART OF THE MEDICAL RECORD PACHECO SEWELL Aug 11, 2021 22:46 JOHNATHON BEAVER MD Aug 12, 2021 20:44
== END 2021-08-09 15:00 | disposition home or self-care (01) | DRG 246 ==
LOC: ER FS 15:20 → CATH 17:02 → ICU 17:42
PROVIDERS: ADMIT Internal Medicine Cardiovascular Disease; ATTEND Internal Medicine Cardiovascular Disease
PROC: 027034Z Dilation of Coronary Artery, One Artery with Drug-eluting Intraluminal Device, Percutaneous Approach (ICD-10-PCS; principal; 2021-08-07)
PROC: 4A023N7 Measurement of Cardiac Sampling and Pressure, Left Heart, Percutaneous Approach (ICD-10-PCS; 2021-08-07)
PROC: B2111ZZ Fluoroscopy of Multiple Coronary Arteries using Low Osmolar Contrast (ICD-10-PCS; 2021-08-07)
PROC: B2151ZZ Fluoroscopy of Left Heart using Low Osmolar Contrast (ICD-10-PCS; 2021-08-07)
PROC: 5A2204Z Restoration of Cardiac Rhythm, Single (ICD-10-PCS; 2021-08-08)
DX: I21.19 ST elevation (STEMI) myocardial infarction involving other coronary artery of inferior wall (principal); I50.21 Acute systolic (congestive) heart failure; I42.8 Other cardiomyopathies; I25.10 Atherosclerotic heart disease of native coronary artery without angina pectoris; R00.0 Tachycardia, unspecified; R06.00 Dyspnea, unspecified; I48.0 Paroxysmal atrial fibrillation; E78.5 Hyperlipidemia, unspecified; E66.9 Obesity, unspecified; Z68.35 Body mass index [BMI] 35.0-35.9, adult; F17.210 Nicotine dependence, cigarettes, uncomplicated; I49.3 Ventricular premature depolarization; I25.5 Ischemic cardiomyopathy
CPT/HCPCS: 36415; 71045; 80048; 80053; 80061; 83735; 83880; 84100; 84484; 85007; 85025; 85027; 85610; 85730; 93005; 93041; 93306; 93312; 93320; 93325; 93458

== ENCOUNTER → 2021-09-12 | Outpatient (CLI) | payer BC ==
[~2021-09-12] MED LIST: APIX5TAB PO; ASPI-1238 PO; ATOR80TA76 PO; CLOP75TA28 PO; HYDR25TA4 PO; LOSA25TA41 PO; MTP25TSR PO; PANT40TA52 PO
[2021-09-12 11:56] LABS: BASOPHILS # (AUTO) 0.1 10^3/uL (0.0-0.1); BASOPHILS % (AUTO) 1 % (0-10); EOSINOPHILS # (AUTO) 0.2 10^3/uL (0.0-0.3); EOSINOPHILS % (AUTO) 2 % (0-10); HEMATOCRIT 49 % (40-54); HEMOGLOBIN 16.8 g/dL (13.3-17.7); LYMPHOCYTES # (AUTO) 2.4 10^3/uL (1.0-4.0); LYMPHOCYTES % (AUTO) 27 % (12-44); MEAN CORPUSCULAR HEMOGLOBIN 33 pg (25-34); MEAN CORPUSCULAR HGB CONC 35 g/dL (32-36); MEAN CORPUSCULAR VOLUME 95 fL (80-99); MEAN PLATELET VOLUME 11.3 fL (9.0-12.2); MONOCYTES % (AUTO) 11 % (0-12); NEUTROPHILS # (AUTO) 5.2 10^3/uL (1.8-7.8); NEUTROPHILS % (AUTO) 59 % (42-75); PLATELET COUNT 173 10^3/uL (130-400); WHITE BLOOD COUNT 8.8 10^3/uL (4.3-11.0)
[2021-09-12 13:19] LABS: ALBUMIN 4.1 GM/DL (3.2-4.5); BILIRUBIN,TOTAL 0.5 MG/DL (0.1-1.0); CALCIUM 9.4 MG/DL (8.5-10.1); CREATININE SERUM 0.75 MG/DL (0.60-1.30); POTASSIUM 3.9 MMOL/L (3.6-5.0); TOTAL PROTEIN 7.4 GM/DL (6.4-8.2)
== END ==
LOC: LAB FS 11:38
PROVIDERS: ATTEND Nurse Practitioner Family
DX: R31.9 Hematuria, unspecified (principal); Z79.01 Long term (current) use of anticoagulants
CPT/HCPCS: 36415; 80053; 85025

== ENCOUNTER → 2021-11-21 | Outpatient (CLI) | payer BC | LOC: CARD 10:20 | PROVIDERS: ATTEND Physician Assistant | DX: I11.9 Hypertensive heart disease without heart failure (principal); I25.10 Atherosclerotic heart disease of native coronary artery without angina pectoris | CPT/HCPCS: 93306 ==

== ENCOUNTER → 2022-08-07 | Outpatient (CLI) | payer BC ==
[~2022-08-07] MED LIST changes: +CATHETER FLUSH 10 ML SYR IVP PRN
[2022-08-07 08:10] VITALS: BP 120/70
--- NOTE | 2022-08-10 11:02 | Cardiology Stress Test Report ---
Stress Test Report Date of Procedure/Referring: Date of Procedure: Aug 10, 2022 PCP Soledad Cota Aprn Admitting Physician Admitting Physician: Attending Physician: Skyla Perez Baseline Heart Rate: 44 Baseline Blood Pressure: Blood Pressure Systolic: 120 Blood Pressure Diastolic: 70 Vital Signs Date Time Temp Pulse Resp B/P (MAP) Pulse Ox O2 Delivery O2 Flow Rate FiO2 08/07/22 08:10 44 120/70 (87) 99 Baseline Vital Signs Vital Signs Date Time Temp Pulse Resp B/P (MAP) Pulse Ox O2 Delivery O2 Flow Rate FiO2 08/07/22 08:10 44 120/70 (87) 99 Baseline EKG: Baseline EKG: NSR Summary: After explaining the procedure and details to the patient, he signed the consent and was brought to the stress nuclear laboratory. Patient exercised on standard Chris protocol, EKG, heart rate and blood pressure were monitored continuously, resting and stress doses of radio tracer were injected, imaging was acquired and reviewed in the short axis, horizontal long axis and vertical long axis views Patient was able to exercise for a total of 6 minutes on Chris protocol, METs 7 Maximum heart rate 107 Maximum blood pressure 197/63 Stress EKG, Minimal nondiagnostic changes Recovery EKG, Return to baseline TID: 1.15 SSS: 1 SDS: 1 EF: 56 Conclusion: 1. Poor exercise tolerance, patient was unable to exercise beyond 6 minutes on standard Chris protocol achieving only 67% of maximal expected heart rate. Patient drank coffee the morning of the test, could not have Lexiscan done. 2. Baseline sinus bradycardia with chronotropic incompetence and severe hypertensive response to exercise with peak blood pressure 197/63 3. Nondiagnostic EKG changes with exercise return to baseline during recovery 4. Diaphragmatic attenuation affecting the quality of the images with mild ischemia involving the inferoapical segment. 5. Normal left ventricular size, ejection fraction 56%. This is a nondiagnostic test, patient was significantly symptomatic had nondiagnostic EKG changes and mild ischemia of the inferior wall. Extensive cardiac history, recommend cardiac catheterization Copy Copies To 1: [facility]/JOHNATHON SORIANO MD Aug 10, 2022 11:02
== END ==
LOC: CARD 07:00
PROVIDERS: ATTEND Physician Assistant
DX: I10 Essential (primary) hypertension (principal); I25.9 Chronic ischemic heart disease, unspecified; R00.1 Bradycardia, unspecified; J98.6 Disorders of diaphragm
CPT/HCPCS: 78452; 93017; A9502; C8929; 93306

== ENCOUNTER 2022-08-26 13:27 | Day surgery (SDC) | payer BC ==
[~2022-08-26] VITALS: Ht 188.8 cm; Wt 123.0 kg
[2022-08-26] VITALS (11 sets, daily range): BP systolic 112–146; BP diastolic 46–87
[~2022-08-26 13:27] MED LIST changes: -CATHETER FLUSH 10 ML SYR IVP PRN
[2022-08-26] MEDS ORDERED: LIDOCAINE 1% INJ 20 ML VIAL ONE (13:42)
[2022-08-26] MEDS ORDERED: HEParin (CATH LAB) 2,000 ML IV ONE (13:42)
[2022-08-26] MEDS ORDERED: NS IV 1000 ML 1,000 ML ONE (13:42)
[2022-08-26] MEDS ORDERED: NS IV 1000 ML 1,000 ML IV ONE (13:45)
--- NOTE | 2022-08-26 14:08 | Diagnostic Imaging Report ---
INDICATION: Coronary artery disease Frontal chest obtained at 0147 p.m. and compared to 08/07/2021. The heart is mildly enlarged. There is central vascular congestion without edema. There is no consolidation or pneumothorax or pleural fluid. IMPRESSION: Cardiomegaly and mild central vascular congestion. No adelina edema or consolidation or pleural fluid. Dictated by: Dictated on workstation # [id number]
[2022-08-26 14:10] LABS: HEMATOCRIT 51 % (40-54); MEAN CORPUSCULAR HEMOGLOBIN 32 pg (25-34); MEAN CORPUSCULAR HGB CONC 33 g/dL (32-36); MEAN CORPUSCULAR VOLUME 97 fL (80-99); MEAN PLATELET VOLUME 10.8 fL (9.0-12.2); PLATELET COUNT 196 10^3/uL (130-400); WHITE BLOOD COUNT 11.1 10^3/uL (4.3-11.0)
[2022-08-26] MEDS ORDERED: PANT40TA52 PO (14:10)
[2022-08-26] MEDS ORDERED: METO50TA7 PO (14:10)
[2022-08-26] MEDS ORDERED: IBUP-2473 PO (14:10)
[2022-08-26] MEDS ORDERED: LOSA50TA63 PO (14:10)
[2022-08-26] MEDS ORDERED: CLOP75TA28 PO (14:10)
[2022-08-26] MEDS ORDERED: ATOR80TA76 PO (14:10)
[2022-08-26] MEDS ORDERED: APIX5TAB PO (14:10)
[2022-08-26] MEDS ORDERED: HYDR25TA4 PO (14:10)
[2022-08-26 14:11] LABS: BILIRUBIN,URINE NEGATIVE (NEGATIVE); CLARITY,URINE CLEAR; COLOR,URINE YELLOW; GLUCOSE, URINE (UA) NEGATIVE (NEGATIVE); KETONES,URINE NEGATIVE (NEGATIVE); LEUKOCYTE ESTERASE ,URINE NEGATIVE (NEGATIVE); NITRITE,URINE NEGATIVE (NEGATIVE); PH,URINE 5.5 (5-9); PROTEIN,URINE NEGATIVE (NEGATIVE)
[2022-08-26] MEDS ORDERED: fentaNYL INJ 100 MCG/2 ML AMP ONE (14:12)
[2022-08-26] MEDS ORDERED: MIDAZOLAM 5 MG/5 ML (VERSED) VIAL ONE (14:12)
[2022-08-26 14:17] LABS: BACTERIA,URINE NEGATIVE /HPF
[2022-08-26 14:36] LABS: ALBUMIN 4.1 GM/DL (3.2-4.5); BILIRUBIN,TOTAL 0.6 MG/DL (0.1-1.0); CALCIUM 9.5 MG/DL (8.5-10.1); CREATININE SERUM 0.87 MG/DL (0.60-1.30); POTASSIUM 3.9 MMOL/L (3.6-5.0); TOTAL PROTEIN 7.6 GM/DL (6.4-8.2)
[2022-08-26] MEDS ORDERED: HEParin 1000 UNIT/ML (10ML VIAL) FOR BOLUS ONE (14:48)
--- NOTE | 2022-08-26 15:18 | Cardiac Procedure Note-CS/ASA ---
Pre-Procedure Note Pre-Op Procedure Note Date of Available H&P: Aug 13, 2022 Date H&P Reviewed: Aug 26, 2022 Time H&P Reviewed: 13:00 History & Physical: H&P Reviewed, Patient Examed, No changes noted Pre-Operative Diagnosis: Coronary artery disease Conscious Sedation Pre-Proced Time 13:00 ASA Score 3 For ASA 3 and 4: Consider anesthesia and medical clearance. Also, for patients with a history of failed moderate sedation consider anesthesia. Airway Lungs Heart ASA score ASA 1: a normal healthy patient ASA 2: a patient with a mild systemic disease (mid diabetes, controlled hypertension, obesity ASA 3: a patient with a severe systemic disease that limits activity (angina, COPD, prior Myocardial infarction) ASA 4: a patient with an incapacitating disease that is a constant threat to life (CHF, renal failure) ASA 5: a moribund patient not expected to survive 24 hrs. (ruptured aneurysm) ASA 6: a declared brain- patient whose organs are being harvested. For emergent operations, add the letter E after the classification Mallampati Classification Grade 3 Sedation Plan Analgesia, Amnesia, Plan communicated to team members, Discussed options with patient/fam, Discussed risks with patient/fam The patient is an appropriate candidate to undergo the planned procedure, sedation, and anesthesia. The patient immediately re-assessed prior to indication. JOHNATHON BEAVER MD Aug 26, 2022 15:18
--- NOTE | 2022-08-26 15:20 | Discharge Inst-Post CATH ---
Discharge Inst-CATH/EP Problems Reviewed?: Yes Post Cardiac Cath/EP D/C Inst Follow Up/Plan Appointment with Dr. Parada's office in 4 weeks <b>CARDIAC CATH/EP PROCEDURE DISCHARGE INSTRUCTIONS</b> ACTIVITY * Go Home directly and rest. * Limit activity of the leg (or wrist if it was used) for 7 days including aerobics, swimming, jogging, bicycling, etc. * Restrict stair-climbing for 7 days if possible, if not, climb up with your non-cath leg, then bring together on the same step. * Avoid lifting, pushing, pulling or excessive movement of the affected extremity for 7 days. * Customary sexual activity may be resumed after 2 days-use caution not to use a position that strains or causes pain to the affected extremity. * No driving for 24 hours. * NO SMOKING. * Avoid straining for bowel movements for 7 days. * Gentle walking on level ground is allowed. * Returning to work will depend on the type of procedure and the results. Your doctor will discuss this with you. CALL YOUR DOCTOR FOR ANY OF THE FOLLOWING: *If bleeding from the puncture site occurs- Apply gentle pressure to site with clean cloth and call your doctor or EMS. * If a knot or lump forms under the skin, increases in size, or causes pain. * If bruising appears to be worsening or moving further down your leg instead of disappearing. * Temperature above 101 F. CARE OF YOUR GROIN INCISION; * Bruising or purple discoloration of the skin near the puncture site is common. * You may shower only, no bathtub bathing for 5 days. Be careful to avoid slipping as your leg may feel stiff. * If a closure device was used on your femoral artery, please see the attached guide regarding care of the device and your leg. * Leave dressing on FOR 24 hours. CARE OF YOUR WRIST INCISION; * Bruising or purple discoloration of the skin near the puncture site is common. * You may shower. * DO NOT submerge wrist. * Leave dressing on FOR 24 hours. JOHNATHON PARADA MD Aug 26, 2022 15:20
--- NOTE | 2022-08-26 15:23 | Cardiac Cath Report ---
Cardiac Cath Report Physician (s)/Commercial Construction Superintendent (s) Physician JOHNATHON BEAVER MD Pre-Procedure Diagnosis Pre-Procedure Diagnosis: Coronary artery disease Post-Procedure Note Procedure Start Date: Aug 26, 2022 Name of Procedure: Left heart catheterization IFR to the right coronary artery Findings/Procedure Note PROCEDURE NOTE: 62-year-old gentleman with history of coronary artery disease, has been having chest pain, had an abnormal stress test, scheduled for cardiac catheterization possible PTCA. After explaining the procedure to the patient, all pros and cons were explained, all questions were answered. The patient signed the consent and then he was placed in the cardiac catheterization laboratory. Groin was prepped in SL fashion local anesthesia was used. Sheath placed in the right femoral artery. Karen' right and left catheter were used to access the coronary system. Karen right was prolapsed to the left ventricular cavity, pressure was measured, pullback LV to aorta was done. Patient has borderline lesion in the mid to distal right coronary artery, Karen right guide with sideholes was used, IFR was measured and it was 0.91- 0.92, multiple measurement were done, initially had more significant gradient but it was probably secondary to spasm in the right coronary artery after removing the guide from the right coronary artery and disengaged there was appropriate measurement and it was 0.92 At the end of the procedure the sheath was removed. Closure device FINDINGS: Hemodynamics LV 106/8, end-diastolic pressure of 8 Aorta 112/62, mean of 81 ANATOMY: Left Main is free of obstructive disease Left Anterior Descending has a patent stent in the mid LAD with 40% stenosis distally nonobstructive disease Left Circumflex is moderate in size with mild to moderate disease up to 20% nonobstructive disease Right Coronary Artery is dominant artery with 50 to 60% stenosis at the mid to distal portion, IFR 0.92 LV Gram was not done, pressure was measured CONCLUSION: 1. Patent stent in the mid LAD with mild to moderate disease in the coronary system nonobstructive disease 2. IFR through the right coronary artery was 0.92 3. Normal left ventricular end-diastolic pressure DISCUSSION AND RECOMMENDATION: Continue to maximize medical therapy no intervention is warranted Anesthesia Type: Conscious Sedation Estimated blood loss (mL): 20 ml Contrast Amount: 65 ml Total Radiation Dose: 873 mGy Post-Procedure Diagnosis Post-operative diagnosis: Chest pain Coronary artery disease Hypertension Hyperlipidemia JOHNATHON BEAVER MD Aug 26, 2022 15:23
[2022-08-26] MEDS ORDERED: NS IV 1000 ML 1,000 ML IV SCH (15:30)
[2022-08-26] MEDS ORDERED: PATIENT MAY USE OWN MEDS, ALL PO SCH (15:30)
== END 2022-08-26 20:26 | disposition home or self-care (01) ==
LOC: CATH 13:27 → CSD 15:40 → CATH 20:26
PROVIDERS: ATTEND Internal Medicine Cardiovascular Disease
DX: R07.9 Chest pain, unspecified (principal); I25.10 Atherosclerotic heart disease of native coronary artery without angina pectoris; I10 Essential (primary) hypertension; I25.2 Old myocardial infarction; I48.0 Paroxysmal atrial fibrillation; I65.23 Occlusion and stenosis of bilateral carotid arteries; E78.2 Mixed hyperlipidemia; F17.210 Nicotine dependence, cigarettes, uncomplicated; T45.516A Underdosing of anticoagulants, initial encounter; Z91.138 Patient's unintentional underdosing of medication regimen for other reason; Z95.5 Presence of coronary angioplasty implant and graft; Z79.01 Long term (current) use of anticoagulants; Z79.02 Long term (current) use of antithrombotics/antiplatelets; Z79.899 Other long term (current) drug therapy; Z28.310 Unvaccinated for COVID-19
CPT/HCPCS: 71045; 80053; 80061; 81000; 85027; 85610; 85730; 87081; 93005; 93458; 93571; C1760; C1769; C1887; C1894; 36415